=== PATIENT | male | born 1990 | race Caucasian/White ===

== ENCOUNTER 2023-11-12 20:59 | Emergency (ER) | payer SELFPAY ==
[~2023-11-12] VITALS: Ht 170.2 cm; Wt 83.0 kg
[2023-11-12 21:08] VITALS: O2SAT 97
[2023-11-12] MEDS: KETOROLAC 15MG/ML VIAL IM ONE (22:25)
[2023-11-13] MEDS ORDERED: LIDO700A15 TP (00:18)
[2023-11-13] MEDS ORDERED: NAPR-1176 MT (00:18)
[2023-11-13 00:46] VITALS: BP 132/79; PULSE 82; RESP 20; TEMP 98.4
== END 2023-11-13 00:47 | disposition home or self-care (01) ==
LOC: ER 20:59
DX: S40.211A Abrasion of right shoulder, initial encounter (principal); M54.2 Cervicalgia; M54.9 Dorsalgia, unspecified; V98.8XXA Other specified transport accidents, initial encounter; Y93.89 Activity, other specified; Y92.89 Other specified places as the place of occurrence of the external cause; Y99.8 Other external cause status
CPT/HCPCS: 99283; 71045; 96372; J1885